=== PATIENT | female | born 1985 | race African-American/Black ===

== ENCOUNTER 2019-01-30 18:44 | Emergency (ER) | payer MEDICAID ==
[~2019-01-30] VITALS: Ht 160 cm; Wt 53.0 kg
[2019-01-31 00:42] VITALS: BP 127/69
== END 2019-01-31 00:43 | disposition home or self-care (01) ==
LOC: ER 18:44
DX: M25.531 Pain in right wrist (principal); M79.641 Pain in right hand; M54.6 Pain in thoracic spine; V49.88XA Car occupant (driver) (passenger) injured in other specified transport accidents, initial encounter; Y93.89 Activity, other specified; Y92.89 Other specified places as the place of occurrence of the external cause; Y99.8 Other external cause status
CPT/HCPCS: 29125; 73110; 73130; 81025; 99284; A4565